=== PATIENT | male | born 1970 | race African-American/Black ===

== ENCOUNTER 2017-09-17 13:01 | Emergency (ER) | payer OTHER ==
[2017-09-17 13:11] VITALS: BP 123/93; PULSE 67; TEMP 98.4; BMI 30.7
[2017-09-17] MEDS ORDERED: ACETAMINOPHEN 325 MG TABLET (FP) PO ONE (14:22)
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
[2017-09-17] MEDS ORDERED: ACETAMINOPHEN 325 MG TABLET (FP) ONE (14:33)
== END 2017-09-17 14:39 | disposition home or self-care (01) ==
LOC: FER 13:01
CPT/HCPCS: 99282-25

== ENCOUNTER 2018-03-21 10:10 | Emergency (ER) | payer SELFPAY ==
[2018-03-21 10:17] VITALS: BP 140/98; PULSE 66; TEMP 97.6; BMI 29.9
--- NOTE | 2018-03-21 10:24 | PDOC ---
Attending Attestation - Resident Resident Name: TroyTomas lunaie - ED Attending Attestation I have performed the following: I have examined & evaluated the patient, The case was reviewed & discussed with the resident, I agree w/resident's findings & plan, Exceptions are as noted - HPI HPI: 03/21/18 10:21 48 year old M hx right renal cyst, HTN p/w lower back pain x 3 days. 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 States that he took ibuprofen which helped the pain tremendously but stopped taking 2 days ago. Pain was initially intermittent but the pain had become constant. States at rest, pain is improved. Worsened with lying down on different parts of the bed. He denies abdominal pain, dysuria, hematuria, testicular pain, diarrhea. Denies any urinary or bowel incontinence or saddle anesthesia. Pt attempted to see his PMD today but the office was closed so came into the ER. - Physicial Exam PE: 03/21/18 10:52 GENERAL: Awake, alert, and fully oriented, in no acute distress HEAD: No signs of trauma EYES: EOMI, sclera anicteric, conjunctiva clear ENT: Auricles normal inspection, hearing grossly normal, nares patent NECK: Normal ROM, supple ABDOMEN: Soft, nontender, No guarding, no rebound. No masses BACK: No tenderness to palpation of lumbar or thoracic spine. No step offs appreciated. Bilateral lower back TTP c/w muscle spasm. Reproducible with flexion and improved with rest. EXTREMITIES: Normal range of motion, no edema. No clubbing or cyanosis. No cords, erythema, or tenderness NEUROLOGICAL: Cranial nerves II through XII grossly intact. Normal speech, normal gait SKIN: Warm, Dry, normal turgor, no rashes or lesions noted. - Medical Decision Making 03/21/18 10:24 Vital Signs Temp Pulse Resp BP Pulse Ox 97.6 F 66 18 140/98 98 03/21/18 10:10 03/21/18 10:10 03/21/18 10:10 03/21/18 10:10 03/21/18 10:10 Findings are consistent with back spasm, likely 2/2 to work. Rest, supportive care. NSAIDS, flexeril and follow up with PMD No red flags for back pain.
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
[2018-03-21] MEDS ORDERED: NAPROXEN 500 MG TABLET (FP) PO ONE (10:59)
[2018-03-21] MEDS ORDERED: NAPROXEN 500 MG TABLET (FP) ONE (11:06)
== END 2018-03-21 11:15 | disposition home or self-care (01) ==
LOC: FER 10:10
DX: S39.012A Strain of muscle, fascia and tendon of lower back, initial encounter (principal); X58.XXXA Exposure to other specified factors, initial encounter; Y93.89 Activity, other specified; Y92.9 Unspecified place or not applicable; M62.830 Muscle spasm of back; I10 Essential (primary) hypertension
CPT/HCPCS: 99283-25

== ENCOUNTER 2019-08-21 23:36 | Emergency (ER) | payer SELFPAY ==
--- NOTE | 2019-08-21 23:39 | PDOC ---
History of Present Illness - General Chief Complaint: Chest Pain Stated Complaint: CHEST PAIN Time Seen by Provider: 08/21/19 23:39 - History of Present Illness Initial Comments: This 49-year-old man with a history of HTN/sinus bradycardia presents with a 1 day history of right-sided chest pain. Patient states that the pain worsens with movement, deep breathing in the area of pain is tender. Although the patient has no direct trauma to the area, he states that he has been lifting many heavy boxes at work over the last few days. He has not taken any medication for the pain. He denies shortness of breath, palpitations, diaphoresis, nausea. He has been taking his antihypertensive medication as prescribed. He has no history of thromboembolic disorders; he denies recent surgery/malignancy. Cardiac risk factors: Positive for HTN; otherwise negative Non-smoker; no history of alcohol or other recreational drug use Past History - Past Medical History Allergies/Adverse Reactions: Allergies Allergy/AdvReac Type Severity Reaction Status Date / Time No Known Allergies Allergy Verified 08/21/19 23:42 Home Medications: Ambulatory Orders Amlodipine Besylate [Norvasc -] 5 mg PO DAILY 03/29/16 COPD: No HTN: Yes - Immunization History Td Vaccination: Yes Immunization Up to Date: Yes - Psycho Social/Smoking Cessation Hx Smoking Status: No Smoking History: Never smoked Have you smoked in the past 12 months: No Number of Cigarettes Smoked Daily: 0 Hx Alcohol Use: No Drug/Substance Use Hx: No Substance Use Type: None Review of Systems - Review of Systems Able to Perform ROS?: Yes Comments:: 12 point review of systems is negative except for what is noted in the history of present illness *Physical Exam - Vital Signs Last Vital Signs Temp Pulse Resp BP Pulse Ox 53 L 16 146/99 99 08/21/19 23:44 08/21/19 23:44 08/21/19 23:44 08/21/19 23:44 - Physical Exam gENERAL: Adult male, alert and oriented x3, no acute distress HEAD: Normal with no signs of trauma. EYES: PERRLA, EOMI, sclera anicteric, conjunctiva clear. ENT: Ears normal, nares patent, oropharynx clear without exudates. Moist mucous membranes. NECK: Normal range of motion, supple without lymphadenopathy, JVD, or masses. LUNGS: Breath sounds equal, clear to auscultation bilaterally. No wheezes, and no crackles. CHEST WALL: Mild tenderness to palpation right anterior upper chest; pain reproduced with contraction of right pectoralis muscles No crepitus or step-offs palpated HEART:Regular rate and rhythm, normal S1 and S2 without murmur, rub or gallop. ABDOMEN:.normal bowel sounds No guarding,tenderness or rebound.No masses No distention. EXTREMITIES: Normal range of motion, no edema. No clubbing or cyanosis. No erythema, or tenderness. NEUROLOGICAL: Cranial nerves II through XII grossly intact. Normal speech. No focal neurological deficits. MUSCULOSKELETAL: Back non-tender to palpation, no CVA tenderness SKIN: Warm, Dry, normal turgor, no rashes or lesions noted. Twelve-lead electrocardiogram performed: Pulmonary interpretation by [facility] bradycardia at 53/min; LVH no acute ST or T wave abnormalities. Intervals and axis are normal. No evidence of acute ST or T wave abnormalities. No evidence of acute cardiac arrhythmia. Tracing is unchanged from previous twelve-lead electrocardiogram performed 03/29/2016 ED Treatment Course - LABORATORY CBC & Chemistry Diagram: 08/22/19 00:01 08/22/19 00:01 - ADDITIONAL ORDERS Additional order review: Laboratory Results 08/22/19 08/22/19 00:01 00:01 PT with INR 12.50 INR 1.06 Sodium 140 Potassium 3.7 Chloride 106 Carbon Dioxide 27 Anion Gap 9 BUN 17.0 Creatinine 1.0 Est GFR (CKD-EPI)AfAm 101.26 Est GFR (CKD-EPI)NonAf 87.37 Random Glucose 96 Calcium 9.2 Total Bilirubin 0.3 AST 26 ALT 37 Alkaline Phosphatase 64 Creatine Kinase 317 H Creatine Kinase Index 1.4 CK-MB (CK-2) 4.6 H Troponin I < 0.02 Total Protein 7.5 Albumin 3.7 08/22/19 00:01 RBC 4.99 MCV 92.0 MCHC 33.3 RDW 14.0 MPV 9.1 Neutrophils % 32.0 L Lymphocytes % 52.8 H Monocytes % 8.6 Eosinophils % 5.7 H Basophils % 0.9 D - RADIOLOGY Radiology Studies Ordered: Category Date Time Status CHEST X-RAY PORTABLE* [RAD] Stat Radiology 08/22/19 00:32 Taken - Medications Given in the ED: ED Medications Discontinued Medications Generic Name Dose Route Start Last Admin Trade Name Freq PRN Reason Stop Dose Admin Ketorolac Tromethamine 30 mg 08/22/19 02:43 08/22/19 02:51 Toradol Injection - IVPUSH 08/22/19 02:44 30 mg ONCE ONE Administration Medical Decision Making - Medical Decision Making Because of patient's cardiac risk factor of hypertension, troponin level will be drawn along with remainder of the chemistry profile and CBC. Total CK elevated at 610 with troponin less than 0.02. Remainder of the laboratory evaluation essentially normal. Patient will be given Toradol 30 mg IV for his chest pain, likely chest wall strain in light of his markedly strenuous physical activity yesterday ( supported by elevated CK levels today). Patient will be discharged with instructions to rest and avoid strenuous activity, especially involving upper body muscles. He should return to the emergency room if he has persistent chest pain or experiences shortness of breath/nausea/diaphoresis Discharge - Discharge Information Problems reviewed: Yes Clinical Impression/Diagnosis: Chest wall muscle strain Qualifiers: Encounter type: initial encounter Qualified Code(s): S29.011A - Strain of muscle and tendon of front wall of thorax, initial encounter Condition: Stable Disposition: HOME - Follow up/Referral - Patient Discharge Instructions Patient Printed Discharge Instructions: DI for Atypical Chest Pain Additional Instructions: Try to avoid strenuous physical activity, especially involving upper body for the next several days Motrin/Aleve/Tylenol as needed for pain Return to ER if you have severe, persistent pain/shortness of breath/persistent cough Follow-up with your general medical doctor within the next 48 hours - Post Discharge Activity
[2019-08-21 23:46] VITALS: BP 146/99; PULSE 53; BMI 29.7
[2019-08-22 01:22] LABS: INR 1.06 (0.83-1.09); PROTHROMBIN TIME (PATIENT) 12.5 SEC (9.7-13.0)
[2019-08-22 01:26] LABS: BASO % 0.9 % (0-2.0); EOS % 5.7 % (0-4.5); HEMATOCRIT 45.9 % (35.4-49); HEMOGLOBIN 15.3 GM/dL (11.7-16.9); LYMPH % 52.8 % (8-40); MCH 30.6 pg (25.7-33.7); MCHC 33.3 g/dl (32.0-35.9); MEAN PLT VOLUME 9.1 fl (7.5-11.1); MONO % 8.6 % (3.8-10.2); PLATELET COUNT 219 K/MM3 (134-434); RBC 4.99 M/mm3 (4.00-5.60); WHITE BLOOD COUNT 5.7 K/mm3 (4.0-10.0)
[2019-08-22 02:31] LABS: ANION GAP 9 MMOL/L (8-16); CALCIUM 9.2 mg/dL (8.5-10.1); CHLORIDE 106 mmol/L (98-107); CO2 27 mmol/L (21-32); GLUCOSE,RANDOM 96 mg/dL (74-106); POTASSIUM 3.7 mmol/L (3.5-5.1); SODIUM 140 mmol/L (136-145)
[2019-08-22 02:32] LABS: ALBUMIN 3.7 g/dl (3.4-5.0); ALK PHOS 64 U/L (45-117); BILIRUBIN,TOTAL 0.3 mg/dL (0.2-1); SGOT/AST 26 U/L (15-37); SGPT/ALT 37 U/L (13-61); TOT PROT 7.5 g/dl (6.4-8.2)
[2019-08-22] MEDS ORDERED: KETOROLAC TROMETHAMINE 30 MG/1 ML VIAL IVPUSH ONE (02:43)
[2019-08-22] MEDS ORDERED: KETOROLAC TROMETHAMINE 30 MG/1 ML VIAL ONE (02:44)
--- NOTE | 2019-08-22 18:41 | EKG ---
Test Reason : Blood Pressure : / mmHG Vent. Rate : 053 BPM Atrial Rate : 053 BPM P-R Int : 202 ms QRS Dur : 082 ms QT Int : 400 ms P-R-T Axes : 041 054 012 degrees QTc Int : 375 ms SINUS BRADYCARDIA WITH SINUS ARRHYTHMIA POSSIBLE LEFT ATRIAL ENLARGEMENT LEFT VENTRICULAR HYPERTROPHY ABNORMAL ECG WHEN COMPARED WITH ECG OF 29-MAR-2016 14:25, NONSPECIFIC T WAVE ABNORMALITY NO LONGER EVIDENT IN LATERAL LEADS Confirmed by KIANA DUNNE, PAOLO ([id number]) on 08/22/2019 6:41:40 PM Referred By: DR STORY Confirmed By:PAOLO BRUNO MD
== END 2019-08-22 02:53 | disposition home or self-care (01) ==
LOC: FER 23:36
CPT/HCPCS: 36415; 71045-TC-FY; 80053; 82550; 82553; 84484; 85025; 85610; 93005; 99282-25

== ENCOUNTER 2021-06-22 17:05 | Emergency (ER) | payer OTHER ==
[2021-06-22] MEDS ORDERED: NAPROXEN 500 MG TABLET PO ONE (17:11)
[2021-06-22] MEDS ORDERED: NAPROXEN 500 MG TABLET ONE (17:17)
[2021-06-22 17:24] VITALS: BP 142/103; PULSE 72; TEMP 98.8; BMI 29.7
== END 2021-06-22 17:55 | disposition home or self-care (01) ==
LOC: FER 17:05
DX: S60.940A Unspecified superficial injury of right index finger, initial encounter (principal); W23.1XXA Caught, crushed, jammed, or pinched between stationary objects, initial encounter
CPT/HCPCS: 73130-TC-RT-FY; 99283-25

== ENCOUNTER 2022-08-17 19:33 | Emergency (ER) | payer OTHER ==
[2022-08-17] MEDS ORDERED: IBUPROFEN 600 MG TABLET (FP) PO ONE ×2 (19:47→19:57)
[2022-08-17] MEDS ORDERED: VALSARTAN 40 MG TABLET PO ONE (19:58)
[2022-08-17 20:05] VITALS: RESP 16; TEMP 97.9
[2022-08-17 21:49] VITALS: BP 149/92; PULSE 59
== END 2022-08-17 21:57 | disposition home or self-care (01) ==
LOC: FER 19:33
DX: R51.9 Headache, unspecified (principal); I10 Essential (primary) hypertension
CPT/HCPCS: 0241U-QW; 93005; 99284-25

== ENCOUNTER 2023-03-13 19:20 | Emergency (ER) | payer OTHER ==
[2023-03-13] MEDS ORDERED: KETOROLAC TROMETHAMINE 60 MG/2 ML VIAL IM ONE (19:39)
[2023-03-13 19:40] VITALS: BP 138/90; PULSE 67; RESP 18; TEMP 98; BMI 30.6
[2023-03-13] MEDS ORDERED: KETOROLAC TROMETHAMINE 60 MG/2 ML VIAL ONE (19:40)
[2023-03-13] MEDS ORDERED: predniSONE 20 MG TABLET (UD) PO ONE (20:47)
[2023-03-13] MEDS ORDERED: predniSONE 20 MG TABLET (UD) ONE (20:49)
[2023-03-13] MEDS ORDERED: CYCLOBENZAPRINE HCL 10 MG TABLET (FP) PO ONE (20:49)
[2023-03-13] MEDS ORDERED: CYCLOBENZAPRINE HCL 5 MG TABLET ONE (20:55)
== END 2023-03-13 21:02 | disposition home or self-care (01) ==
LOC: FER 19:20
PROC: 3E0233Z Introduction of Anti-inflammatory into Muscle, Percutaneous Approach (ICD-10-PCS; principal; 2023-03-13)
DX: M54.13 Radiculopathy, cervicothoracic region (principal); M25.511 Pain in right shoulder; X50.0XXA Overexertion from strenuous movement or load, initial encounter; Y93.I9 Activity, other involving external motion; Y92.129 Unspecified place in nursing home as the place of occurrence of the external cause
CPT/HCPCS: 72050-TC-FY; 72070-TC-FY; 99284-25